=== PATIENT | female | born 1980 | race Caucasian/White ===

== ENCOUNTER 2020-04-21 01:45 | Day surgery (SDC) | payer OTHER, SELFPAY ==
[2020-04-20 15:48] VITALS: BMI 26.2
--- NOTE | 2020-04-20 15:48 | PM.IMHP ---
H&P: HPI History of Present Illness Date/Time: 04/20/20 15:48 Chief complaint: Missed AB Narrative: Joan Philippe is a 39 year old female who presents for suction D&C for missed AB. Pt was evaluated for bleeding in early . US showed a long within the uterus. Pt continued to have spotting. follow up US 2 weeks later showed an IUP with minimal interval growth and no heart tones. Review of Systems Cardiovascular: Cardiovascular: Denies chest pain, Denies leg edema, Denies palpitations, Denies dyspnea and Denies dyspnea on exertion Respiratory: Respiratory: Denies cough, Denies dyspnea and Denies dyspnea on exertion Gastrointestinal: Gastrointestinal: Denies abdominal pain, Denies constipation, Denies diarrhea, Denies nausea and Denies vomiting Genitourinary: Genitourinary: Denies hematuria, Denies urinary frequency, Denies dysuria, Denies pelvic pain, Denies urinary incontinence and Denies vaginal discharge Neurologic: Reports system reviewed and no additional complaints, except as documented Psychiatric: Psychiatric: Reports no additional psychiatric complaints Endocrine: Endocrine: Denies palpitations [facility] Family History Family History (Updated 04/14/14 @ 07:13 by DOCTOR UNKNOWN) Father Family history of malignant neoplasm of urinary bladder Social History Social History Smoking status: Never smoker Alcohol intake: current Meds Home Medications and Allergies Home Medications Medication Instructions Recorded Confirmed Type 21-iron fu-folic acid 1 tablet PO DAILY 04/20/20 04/20/20 History [ Complete] Allergies Allergy/AdvReac Type Severity Reaction Status Date / Time levofloxacin Allergy Unknown Rash Verified 04/20/20 15:49 Exam Const: General: no acute distress Eyes: EOM: EOMs intact bilaterally Neck: Neck: supple Thyroid: thyroid normal Chest: Breast/axilla inspection: normal inspection of the breasts Breast/axilla palpation: normal palpation of the breasts, normal palpation of the axillae and no axillary lymphadenopathy Resp: Effort & Inspection: normal respiratory effort Auscultation: clear to auscultation bilaterally Cardio: Rate: regular rate Rhythm: regular rhythm GI: Inspection: non-distended GI Palp: Yes Soft to palpation, No Tenderness to palpation present (GI) and No Guarding due to palpation present (GI) Auscultation: normal bowel sounds : General: No bladder normal to palpation External Female Exam: normal external appearance Speculum Exam - Vagina: normal vaginal discharge and No vaginal bleeding Speculum Exam - Cervix: nontender Bimanual exam- vagina & uterus: No bladder normal to palpation and No Cervical tenderness present OB/external & speculum: No vaginal bleeding Skin: General skin exam: normal color and no rashes or lesions noted Neuro: Cognition (Neuro): normal cognition Speech: normal speech Extrem: General: normal to inspection and no edema Psych: Mental Status: mental status grossly normal Affect: normal affect Assessment and Plan Assessment and plan (1) Missed : Code(s): O02.1 - Missed Status: Acute Assessment and Plan: 39 yo found to have a missed AB Rh+ initial US on 04/06/20 showed a long IUP at 6w2d with FHT follow up US on 04/20/20 showed minimal interval growth and no heart tones pt opted for surgical management via D&D alternative management methods and risk and benefits of each discussed. will plan for suction D&C under US guidance
--- NOTE | 2020-04-21 11:50 | WPDANESEPPF ---
Anes - Initial Pre Proc Eval Procedure: Operation Date: 04/21/20 13:00 Proposed Procedures p Suction Dilation And Curettage - Sotero Brian MD Date/Time: 04/21/20 11:50 Surgeon: Sotero Brian MD Pre Op Diagnosis: Missed AB Patient Data Age: 39 Gender: F Height: 4 ft 11 in Weight: 58.97 kg Allergies Allergy/AdvReac Type Severity Reaction Status Date / Time levofloxacin Allergy Unknown Rash Verified 04/20/20 15:49 Home Medications Medication Instructions Recorded Confirmed Type 21-iron fu-folic acid 1 tablet PO DAILY 04/20/20 04/20/20 History [ Complete] Patient hx anesthesia problems: other (shaking) Family hx anesthesia problems: none PMFSH Family History Family History Father Family history of malignant neoplasm of urinary bladder Social History Social History Smoking status: Never smoker Alcohol intake: current Spiritual care concerns: No Anes - Eval Final PreProcedure Day of Procedure 04/21/20 11:50 Patient weight: normal Heart: regular rate and rhythm Lungs: clear to auscultation Airway: Mallampati scale class 1 Neurological: alert and oriented ASA classification: II Emergent: no Anesthetic plan: proceed Anesthesia type and monitoring: general GIVS and standard monitoring Informed Consent: The patient's anesthetic plan and its attendant risks and benefits were discussed with the patient/family/POA. Questions were solicited and answers provided to the satisfaction of the patient/family/POA.
[2020-04-21 12:00] VITALS: BP 109/66; PULSE 65; RESP 18; TEMP 36.8; O2SAT 100
[2020-04-21] MEDS: LACTATED RINGERS 1,000 ML 30 ML IV CONT (12:51)
--- NOTE | 2020-04-21 12:51 | WPDHPUPDATE1 ---
History and Physical Update Update Date/Time: 04/21/20 12:51 History and Physical has been reviewed, including an updated exam of the patient. There are NO changes in the patient's condition. Risks, benefits, and alternatives have been discussed and questions answered. Patient agrees to proceed with procedure.
[2020-04-21] MEDS: DOXYCYCLINE HYCLATE 100 MG TABLET PO (12:53)
[2020-04-21 12:57] LABS: Hematocrit 38.9 % (37.0-47.0); Hemoglobin 13.3 g/dL (12.0-15.0)
[2020-04-21] MEDS: KETOROLAC 30 MG/ML VIAL (*BKC) IM (13:14)
[2020-04-21 13:23] VITALS: BP 120/83; PULSE 91; RESP 16; TEMP 37; O2SAT 98
[2020-04-21 13:40] VITALS: BP 114/67; PULSE 73; RESP 20; O2SAT 97
--- NOTE | 2020-04-21 13:44 | SUR.PHASEII ---
CALLED BACK TO ROOM.
--- NOTE | 2020-04-21 13:49 | PM.PROC ---
Procedure Note - Detailed Date of procedure: 04/21/20 Pre-op diagnosis: Missed AB Post-op diagnosis: same Procedure performed: Suction dilation and curettage Description of procedure: Antibiotics: Doxycycline Findings: uterus equal to dates, cervix not dilated, intrauterine MAB Complications: none Specimens: endometrial contents- products of conception EBL: 100 mL Indications: Patients was found to have an intrauterine MAB on pelvic US. She elected for surgical management via Suction D&C. Procedure: The patient was taken to the operating room after a missed had been noted on on transvaginal ultrasound. The risks, benefits and alternatives of the procedure were reviewed with the patient and informed consent was obtained. The patient was taken to the OR and anesthesia was noted to be adequate. The patient was placed in the dorsolithotomy position. Pelvic exam was performed with findings noted above. The patient was prepped and draped in the usual sterile fashion. Main retractors were placed anteriorly and posteriorly in the vagina and the cervix was grasped with an Tenaculum clamp. Paracervical block was performed wiht 1% lidocaine. The cervix was dilated further to allow for passage of a 8mm suction curette. The 8mm suction curette was gently advanced to the fundus, suction was activated, and the tip was rotated while being withdrawn to clear the uterus of products. This suction process was repeated 4 additional times due to the quantity of material in the uterus. The sharp curette was introduced and advanced to the fundus to remove any remaining products. The suction curette was reintroduced one final time to ensure all products had been removed. The entire D&C was performed under direct US visualization. Good endometrial stripe was visualized via US. The Tenaculum clamp was removed. Good hemostasis was noted. Instrument, sponge, and sharp counts were correct. Patient tolerated the procedure well and was taken to the recovery room in stable condition. Anesthesia: GLMA Surgeon: Sotero Brian MD Estimated blood loss (mL): 100 Drains: No Packing: No Pathology: yes (uterine contents) Complications: No immediate complications Condition: stable Disposition: PACU
[2020-04-21 14:10] VITALS: BP 111/71; PULSE 64; RESP 20; O2SAT 97
[2020-04-21 14:40] VITALS: BP 113/55; PULSE 67; RESP 20
[2020-04-21] MEDS: DOXYCYCLINE HYCLATE 100 MG TABLET 200 MG PO (14:44)
[2020-04-21 15:10] VITALS: BP 100/57; PULSE 74; RESP 20
--- NOTE | 2020-04-21 15:55 | SUR.PHASEII ---
7737 BLOOD BANK CALLED RE: BLOOD TYPE; TOLD SPECIMEN HAD JUST ARRIVED.
--- NOTE | 2020-04-21 15:55 | SUR.PHASEII ---
1515 BLOOD BANK CALLED WITH BLOOD TYPE RESULTS.
== END 2020-04-21 15:20 | disposition home or self-care (01) ==
PROVIDERS: PCP Family Medicine; Visit Provider Student in an Organized Health Care Education/Training Program
PROC: (CPT 59820; principal; 2020-04-21 13:00)
DX: O02.1 Missed abortion (principal)
CPT/HCPCS: 59820; 36415; 85014; 85018; 85461; 88264; 88305; A9270; J0131; J1100; J1885; J2250; J2405; J2704; J3010; J7120

== ENCOUNTER 2025-06-09 01:56 | Day surgery (SDC) | payer BC, SELFPAY ==
--- NOTE | 2025-06-07 07:22 | PM.IMHP ---
H&P: HPI History of Present Illness Date/Time: 06/07/25 07:22 Chief Complaint: Desires permanent sterilization excessive heavy bleeding Narrative: Is a 44-year-old multiparous patient admitted for laparoscopic bilateral salpingectomy hysteroscopy/dilatation curettage and Dora ablation. She desires permanent irreversible sterilization. She has declined other methods and understands this to be permanent and irreversible she also has excessive heavy bleeding and will undergo an ablation risks and benefits reviewed including not exclusive of , aspiration pneumonia, bleeding, transfusion, perforation injury to bowel, bladder, ureters, or other internal organs with need for open laparotomy. She received the ACOG handout entitled hysteroscopy as well as dilatation curettage and laparoscopy. She had all questions answered and asked to proceed Review of Systems Cardiovascular: Cardiovascular: Denies chest pain, Denies leg edema, Denies palpitations, Denies dyspnea and Denies dyspnea on exertion Respiratory: Respiratory: Denies cough, Denies dyspnea and Denies dyspnea on exertion Gastrointestinal: Gastrointestinal: Denies abdominal pain, Denies constipation, Denies diarrhea, Denies nausea and Denies vomiting Genitourinary: Genitourinary: Denies hematuria, Denies urinary frequency, Denies dysuria, Denies pelvic pain, Denies urinary incontinence and Denies vaginal discharge Neurologic: Reports system reviewed and no additional complaints, except as documented Psychiatric: Psychiatric: Reports no additional psychiatric complaints Endocrine: Endocrine: Denies palpitations [facility] Family History Family History Father Family history of malignant neoplasm of urinary bladder Social History Social History Smoking status: Never smoker Alcohol intake: current Spiritual care concerns: No Meds Home Medications and Allergies Home Medications ?Medication ?Instructions ?Recorded ?Confirmed ?Type vits,calcium 21-iron fum 1 tablet PO DAILY 04/20/20 04/20/20 History 14 mg iron-folic acid 400 mcg tablet ( Complete) acetaminophen 500 mg tablet 500 mg PO Q6H PRN pain #30 tabs 04/21/20 Rx (Tylenol Extra Strength) ibuprofen 600 mg tablet 600 mg PO Q6H PRN pain #30 tabs 04/21/20 Rx Allergies Allergy/AdvReac Type Severity Reaction Status Date / Time levofloxacin Allergy Unknown Rash Verified 04/21/20 12:55 Exam Const: General: cooperative, healthy appearing and comfortable Nutritional Appearance: average body habitus Orientation/consciousness: oriented to person, oriented to place and oriented to time Resp: Effort & Inspection: normal respiratory effort Cardio: Rate: regular rate Rhythm: regular rhythm Heart sounds: S1 normal heart sound present and S2 normal heart sound present GI: Inspection: normal to inspection : Speculum Exam - Vagina: normal appearance of the vagina Speculum Exam - Cervix: normal appearance of the cervix Bimanual exam- vagina & uterus: normal bimanual exam Assessment and Plan Assessment and plan (1) Sterilization: Code(s): Z30.2 - Encounter for sterilization Status: Acute (2) Menorrhagia: Code(s): N92.0 - Excessive and frequent menstruation with regular cycle Status: Acute Plan Proceed with laparoscopy bilateral salpingectomy as well as hysteroscopy/dilatation curettage/Dora ablation
--- NOTE | 2025-06-07 10:39 | SUR.PREOP ---
[facility] has started construction of its new state of the art ER which will open Spring 2026. With this, we anticipate parking may be a challenge for some our surgical patients and families. Parking spaces are limited but are available for all Surgical, obstetrics, and ER patients sharing this lot. If you arrive and find you are having a hard time finding a parking space, please note that we understand the challenges, please drive around the hospital and park near Hospital Entrance 1. When you enter this entrance, you can ask a volunteer to direct or take you back to the surgical waiting area to check in. We appreciate everyone?s understanding of these expected challenges while we build for your future. Report to the Outpatient Waiting Room, entrance under the green pavilion located off [address], at time _730am__ on date _06/09/25_. Planned Procedure Time: _930am__.? Time changes happen often and if your time is changed the preop area will call you the afternoon before. - You and your visitor will be asked to self-screen and do not enter if you have any COVID symptoms. Please call surgeon if you need to reschedule. - A mask is optional within the hospital at this time. Patients may have clear liquids (water, carbonated beverages, clear teas, apple juice) until 3 hours prior to surgery with a maximum of 20 ounces. - No food from midnight until time of surgery and no smoking, or chewing tobacco (or any form of nicotine). No chewing gum, candy or mints. Take only the following medications with a SIP of water on the morning of surgery: ___none____ DO NOT STOP ANY OF YOUR OTHER PRESCRIPTION MEDICATIONS PRIOR TO SURGERY EXCEPT THE FOLLOWING Hold all vitamins and supplements for 3 days per anesthesiologist. Medications to discontinue per physician ___None Date to take last dose_immediately today Please no make-up, nail maltese, hairspray, perfume, deodorant, or body powder the day of surgery.? No jewelry (including any body piercings) or valuables the day of surgery, leave them at home.? Please take a shower or bath the night before, or the morning of, surgery with an antibacterial soap.? Wear comfortable, loose fitting clothing.? - Jewelry must be removed prior to entering the operating room.? Rings and piercings that are not removed may be cut off. - The hospital will not accept responsibility for valuables.? - Please leave all valuables, including medications, at home the day of surgery. If you are going home after surgery, a licensed national flatbed truck driver must drive you home.? - NO public transportation without another adult if you receive anesthesia. - We recommend that an adult stay with you for 24 hours following discharge. - We also recommend that you do not drive, make important decision, drink alcoholic beverages, or take any drugs that were not prescribed by your health care provider for at least 24 hours after your discharge time. Follow any additional instructions given to you from your surgeon. Telephone instructions given to _Joan__and asked if any additional questions and then verbalized understanding. Patient advised to call surgeon office or pre surgery nurse liaison [phone] if any additional questions.
[2025-06-07 10:44] VITALS: BMI 26.2
[2025-06-09] VITALS (14 sets, daily range): BP systolic 93–133; BP diastolic 50–77; PULSE 48–118; RESP 10–20; TEMP 36.2–36.8; O2SAT 92–100
--- OUTSIDE RECORDS SUMMARY | 2025-06-09 01:59 | XMS_ITS | Clinical Summary ---
Author Organization [facility] Address [address] [place] [id number] Care Team Providers Care Picking Belt Operator Name Role Phone Catrachita Combs Primary Care Provider [phone] Allergies Active Allergy Reactions Criticality Noted Date Comments Levofloxacin Unknown 02/11/2020 Medications Multiple Vitamin (MULTIVITAMIN ADULT OR) Take 1 tablet by mouth daily. Active Active Problems Problem Noted Date Diagnosed Date Palpitations 09/18/2024 Encounters Date Type Department Care Team Description 03/28/2025 12:00 PM CDT Office Visit [address] [address] Martha Barrientos, ANP- Follow Up 03/28/2025 Travel from Last 3 Months Family History Medical History Relation Comments Open Heart Father Valve Disease Father Multiple myeloma Mother Relation Status Comments Brother 1 (Age 26) Brother 2 Alive Father Alive Mother (Age 65) Sister Alive Social History Tobacco Use Types Packs/Day Years Used Date Smoking Tobacco: Never Smokeless Tobacco: Never Alcohol Use Standard Drinks/Week Comments Yes 6.7 (1 standard drink = 0.6 oz p ure alcohol) Comments No Sex and Gender Information Value Date Recorded Sex Assigned at Female 09/14/2024 1:05 PM LAW RESEARCHER Legal Sex Female 1:25 PM CDT Gender Identity Not on file Sexual Orientation Not on file Last Filed Vital Signs Vital Sign Reading Time Taken Comments Blood Pressure 126/80 03/28/2025 12:06 PM CDT Pulse 71 03/28/2025 12:06 PM CDT Temperature 37 C (98.6 F) 01/20/2024 8:59 PM CDT Respiratory Rate 16 01/21/2024 12:02 AM CDT Oxygen Saturation 96% 03/28/2025 12:06 PM CDT Inhaled Oxygen Concentration - - Weight 61.2 kg (135 lb) 03/28/2025 12:06 PM CDT Height 149.9 cm (4' 11) 03/28/2025 12:06 PM CDT Body Mass Index 27.27 03/28/2025 12:06 PM CDT Plan of Treatment Health Maintenance Due Date Last Done Comments Cervical Cancer Screening Pa p Smear (Age 30 to 64) Every 3 Years 1981 Annual Physical 1984 Hepatitis C 1999 Hepatitis B Vaccines (1 of 3 - 19+ 3-dose series) 2000 Pneumococcal Vaccine: Pediatrics (0 to 5 Years) and At-Risk Patients (6 to 49 Years) (1 of 2 - PCV) 2000 HPV Vaccines (1 - 3-dose SCD M series) 2008 Cervical Cancer Screening Pa p with HPV Testing (Age 30 to 64) Every 5 Years 2011 Cervical Cancer Screening wi HPV 2011 COVID-19 Vaccine (2024-2 6 season) 2025 08/27/2021, 11/05/2020, 10/15/2020 Influenza Adult (#1) 2025 06/22/2021, 05/18/2020 Mammogram Screening 06/19/2025 06/19/2023, 06/13/2023, 03/21/2022 DTaP, Tdap and Td Vaccines ( 3 - Td or Tdap) 03/06/2033 03/06/2023, 10/17/2020 Hepatitis A Vaccines Aged Out No long er eligible based on patient's age to complete this topic Meningococcal B Vaccine Aged Out No l onger eligible based on patient's age to complete this topic Meningococcal Vaccine Aged Out No emili nieves eligible based on patient's age to complete this topic RSV Immunizations Under 20 Months Aged Out No longer eligible b ased on patient's age to complete this topic Insurance [facility] Care Teams Picking Belt Operator Relationship Specialty Start Date End Date Catrachita Combs PA [address] [place] [address] PCP - General PHYSICIAN DIETITIAN RESEARCH 05/27/24
--- OUTSIDE RECORDS SUMMARY | 2025-06-09 01:59 | XMS_ITS | Encounter Summary ---
Author Organization [facility] Facility Care Team Providers Care Rn Training Name Role Phone Marcio Ware Primary Care Provider [phone] Ruthann Melissa MD Primary Care Provi holden Marcio Ware Unavailable [phone] Catrachita Combs Primary Care Provider + Encounter Details Date Type Department Care Team (Latest Contact Info) Description 09/17/2018 Orders Only [facility] CLINCONV Provider, MD Kaya [address] [place] [address] Social History Tobacco Use Types Packs/Day Years Used Date Smoking Tobacco: Never Assessed Comments Unknown Sex and Gender Information Value Date Recorded Sex Assigned at Not on file Legal Sex Female 11:03 AM HIDE WASHER Gender Identity Female 07/02/2021 10:51 AM HIDE WASHER Sexual Orientation Straight 07/02/2021 10 :51 AM HIDE WASHER documented as of this encounter Plan of Treatment Not on file documented as of this encounter Procedures Procedure Name Priority Date/Time Associated Diagnosis Comments CARDIOLOGY REPORT 09/24/2018 12: 00 AM HIDE WASHER CARDIOLOGY REPORT 09/24/2018 12: 00 AM HIDE WASHER documented in this encounter Results * CARDIOLOGY REPORT (09/24/2018 12:00 AM HIDE WASHER) Anatomical Region Laterality Modality Other Narrative 09/24/2018 12:00 AM HIDE WASHER Ordered by an unspecified provider. us Historical Provider [facility] CARDIAC SERVICES PROCE DURES Final Result * CARDIOLOGY REPORT (09/24/2018 12:00 AM HIDE WASHER) Anatomical Region Laterality Modality Other Narrative 09/24/2018 12:00 AM HIDE WASHER Ordered by an unspecified provider. us Historical Provider CV CARDIAC SERVICES PROCE DURES Final Result documented in this encounter Visit Diagnoses Not on filedocumented in this encounter Care Teams Rn Training Relationship Specialty Start Date End Date Marcio Ware PA PCP - General 01/06/18 10/18/18 Ruthann Melissa MD [address] [place], [place] [id number] PCP - General 10/19/18 04/15/24 Catrachita Combs PA [address] [id number] PCP - General Family Medicine 04/16/24 Marcio Ware PA 10/19/18 12/15/19 documented as of this encounter
--- OUTSIDE RECORDS SUMMARY | 2025-06-09 01:59 | XMS_ITS | Encounter Summary ---
Author Organization [facility] Facility Care Team Providers Care Cloth Coverer Name Role Phone Marcio Ware Primary Care Provider [phone] Ruthann Melissa MD Primary Care Provi holden Marcio Ware Unavailable [phone] Catrachita Combs Primary Care Provider + Encounter Details Date Type Department Care Team (Latest Contact Info) Description 03/26/2018 Orders Only [facility] CLINCONV Provider, MD Kaya [address] [place] [address] Social History Tobacco Use Types Packs/Day Years Used Date Smoking Tobacco: Never Assessed Comments Unknown Sex and Gender Information Value Date Recorded Sex Assigned at Not on file Legal Sex Female 11:03 AM TUBE PUSHER Gender Identity Female 07/02/2021 10:51 AM TUBE PUSHER Sexual Orientation Straight 07/02/2021 10 :51 AM TUBE PUSHER documented as of this encounter Plan of Treatment Not on file documented as of this encounter Procedures Procedure Name Priority Date/Time Associated Diagnosis Comments SCAN - PATHOLOGY 03/26/2018 12:0 0 AM CDT documented in this encounter Results * SCAN - PATHOLOGY (03/26/2018 12:00 AM CDT) Narrative 03/26/2018 12:00 AM CDT Ordered by an unspecified provider. Historical Provider Final Res ult documented in this encounter Visit Diagnoses Not on filedocumented in this encounter Care Teams Cloth Coverer Relationship Specialty Start Date End Date Marcio Ware PA PCP - General 01/06/18 10/18/18 Ruthann Melissa MD [address] [facility] [place], [place] [phone] PCP - General 10/19/18 04/15/24 Catrachita Combs PA [address] [place], [place] [id number] PCP - General Family Medicine 04/16/24 Marcio Ware PA 10/19/18 12/15/19 documented as of this encounter
--- OUTSIDE RECORDS SUMMARY | 2025-06-09 02:00 | XMS_ITS | Clinical Summary ---
Author Organization [address] Address [address] [place] [address] [place] [address] Care Team Providers Care Hydrotel Operator Name Role Phone Catrachita Combs Primary Care Provider + Allergies Active Allergy Reactions Criticality Noted Date Comments Levofloxacin Unknown 02/11/2020 Medications ascorbic acid (VITAMIN C) 100 mg tablet 10 tablets (1,000 mg total) daily Active lwrdgpyq-bgza-b in-folic acid 18-0.4 mg tablet Take by mouth Active escitalopram (LEXAPRO) 5 mg tabletIndicatio ns:Adjustment disorder with mixed anxiety and depressed mood Take 1 tablet (5 mg total) by mouth daily 90 tablet 3 04/16/2024 Active Active Problems Problem Noted Date Diagnosed Date Shortness of breath 04/16/2024 Assessment & Plan (04/16/2024 12:25 PM CDT): New problem. Patient is experiencing difficulty breathing with sitting. Denies any symptoms with exertion. She can exercise strenuously without problems. EKG completed in office shows sinus bradycardia. Machine interpretation reading anterior infarct age undetermined. Reviewed EKG from 2019 as well, similar appearance. No chest pain. Doubt this is cardiac in nature. However, with patient's concerns and family history we will get further workup to ensure no underlying cardiac pathology. Check cardiac enzymes Referral to Cardiology, might consider stress testing if appropriate We will get echo given her shortness of breath More likely, this is a positional issue. Encouraged proper posture and deep breathing exercises. Neck pain on left side 04/16/2024 Physical exam, annual 09/11/2020 Overview (03/06/2023): Work on healthy low carb diet Healthy activity for 30 minutes daily Wear sun screen, seat belts No texting/drinking and driving Health Maintenance: Last PAP: through [employer]IMAL CARETAKER SUPERVISOR-May 2021 Last mammogram: 03/2022-WNL, ordered Last Tdap: encouraged Last Flu: encouraged yearly Last COVID: encouraged yearly Assessment & Plan (04/16/2024 12:13 PM CDT): Doing well overall Working on weight loss with diet/exercise and has been successful Mood improved with lexapro Mammogram - annual screening due 2023 Pap - will request previous records, gets yearly Vaccinations reviewed Assessment & Plan (03/06/2023 9:58 AM CDT): Work on healthy low carb diet Healthy activity for 30 minutes daily Wear sun screen, seat belts No texting/drinking and driving Health Maintenance: Last PAP: through [employer]AKER SUPERVISOR-May 2021 Last mammogram: 03/2022-WNL, ordered Last Tdap: encouraged Last Flu: encouraged yearly Last COVID: encouraged yearly Assessment & Plan (01/07/2022 1:33 PM CDT): Work on healthy low carb diet Healthy activity for 30 minutes daily Wear sun screen, seat belts No texting/drinking and driving Health Maintenance: Last PAP: through [employer] CAR[employer]AKER SUPERVISOR-May 2021 Last mammogram: ordered Last Tdap: encouraged Last Flu: encouraged yearly Last COVID: up to date Assessment & Plan (09/11/2020 10:29 AM COMPUTER ENGINEER): Work on healthy low carb diet Healthy activity for 30 minutes daily Wear sun screen, seat belts No texting/drinking and driving Health Maintenance: Last PAP: through [employer]IM[employer] CAR[employer]AKER SUPERVISOR Last mammogram: @41 Last DEXA:@61 Last colonoscopy/cologuard: @46 Last Tdap: up to date Last pneumonia/Prevnar:@66 Last Shingrix: @50 Last Flu: encouraged yearly Adjustment disorder with mixed anxiety and depre ssed mood 09/11/2020 Assessment & Plan (04/16/2024 12:13 PM CDT): Stable, no changes. Continue current regimen with Lexapro 5mg daily (pt taking 1/2 pill currently) Assessment & Plan (03/06/2023 10:00 AM CDT): Doing well on current regimen Continue lexapro Continue healthy changes to boost mood- exercise, healthy diet, using support structures that are in place, and good sleep habits If mood worsens or changes, please contact the office Anything emergent, to the er Call for questions or concerns Assessment & Plan (01/07/2022 1:49 PM CDT): Patient reiterated no suicidal thoughts at this time; contact 911 and go to the ER if becomes suicidal lexapro 5 mg daily take medication as directed discussed side effects of medication with patient encouraged healthy diet and exercise Will refer to a counselor use support structures you have in place consider meditation-look at Calm ant try to work on healthy sleep habits If mood worsens or changes, please contact the office Anything emergent, to the er Assessment & Plan (09/11/2020 10:35 AM COMPUTER ENGINEER): Patient reiterated no suicidal thoughts at this time; contact 911 and go to the ER if becomes suicidal lexapro 5 mg daily take medication as directed discussed side effects of medication with patient encouraged healthy diet and exercise encouraged patient to see a counselor use support structures you have in place consider meditation-look at Calm ant try to work on healthy sleep habits If mood worsens or changes, please contact the office Anything emergent, to the er Miscarriage 09/11/2020 Assessment & Plan (09/11/2020 11:09 AM COMPUTER ENGINEER): Continue to follow with her [employer] SUPERVISOR Let me know if she would want to see a new [employer]IMAL CARETAKER SUPERVISOR Update me with any changes Pure hypercholesterolemia 09/11/2020 Assessment & Plan (04/16/2024 12:14 PM CDT): Stable, no changes. Continue current regimen with diet and exercise; lipid panel has improved, at goal Assessment & Plan (03/06/2023 10:01 AM CDT): Chronic, stable Continue healthy changes Assessment & Plan (09/11/2020 11:25 AM COMPUTER ENGINEER): Mild elevation in LDL Continue healthy changes for her diet Call for questions or concerns Overweight (BMI 25.0-29.9) 09/11/2020 Assessment & Plan (03/06/2023 10:00 AM CDT): BMI Follow-up includes: nutrition counseling. Assessment & Plan (09/11/2020 11:26 AM COMPUTER ENGINEER): She is doing great with her diet and exercise- continue healthy changes Leukopenia 11/11/2017 Encounters Date Type Department Care Team Description 05/17/2025 7:50 AM CDT Lab [facility] [address] [place] [id number] Adult wellness visit; Missed menses 05/17/2025 Results Follow-Up [facility] [address] [address] Catrachita Combs PA Thyroid Function [place], Lipid panel, Comprehensive metabolic panel, Additional followed-up results: 7 05/16/2025 Orders Only [facility] [address] [address] Catrachita Combs PA Adult wellness visit (Primary Dx); Missed menses from Last 3 Months Immunizations Immunization Administration Dates Next Due Influenza, Quadrivalent, Spl it, Preservative Free, Intramuscular 06/22/2021 Influenza, Unspecified 06/04/2023(Deferr ed: Patient decision),05/18/2022(Deferred: Patient Refused),05/18/2021(Deferred: Patient Refused),05/18/2020 Tdap 03/06/2023 Surgical History Surgery Date Site/Laterality Comments AUGMENTATION MAMMAPLASTY Bilateral 2015 Medical History Medical History Date Comments Miscarriage 09/11/2020 Pure hypercholesterolemia 09/11/2020 Family History Medical History Relation Name Comments Hypertension Brother Heart disease Father Hypertension Father Multiple myeloma Mother Breast cancer Mother's Sister Relation Name Status Comments Brother Alive Father Alive Maternal Grandfather Maternal Grandmother Mother Alive Mother's Sister Paternal Grandfather Paternal Grandmother Sister Alive Social History Tobacco Use Types Packs/Day Years Used Date Smoking Tobacco: Never Tobacco Cessation:Counseling Given: Not Answered Alcohol Use Standard Drinks/Week Comments Yes 0 (1 standard drink = 0.6 oz pur e alcohol) socially AUDIT-C Answer Date Recorded Q1: How often do you have a drink containing alc ohol? 2-4 times a month 03/06/2023 Q2: How many drinks containi ng alcohol do you have on a typical day when you are drinking? 1 or 2 03/06/2023 Q3: How often do you have si x or more drinks on one occasion? Never 03/06/2023 PHQ-2 Answer Date Recorded PHQ-2 Total Score (If total score is 3 or more points, staff should administer the PHQ-9) 0 04/16/2024 Personal Safety Answer Date Recorded Getting School Help Needed Not on file 10/31 Comments No Sex and Gender Information Value Date Recorded Sex Assigned at Not on file Legal Sex Female 11:03 AM COMPUTER ENGINEER Gender Identity Female 07/02/2021 10:51 AM COMPUTER ENGINEER Sexual Orientation Straight 07/02/2021 10 :51 AM COMPUTER ENGINEER Obstetrics History Para Term AB IAB SAB Ectopic Multiple Livin g Live Births 5 1 1 Date Outcome GA Total Labor Labor/2nd/3rd Weight Sex Type Anes PTL Angelica A1 A5 Name Clin Term Last Filed Vital Signs Vital Sign Reading Time Taken Comments Blood Pressure 112/78 04/16/2024 10:20 AM CDT Pulse 68 04/16/2024 10:20 AM CDT Temperature 36.4 C (97.5 F) 04/16/2024 10:20 AM CDT Respiratory Rate 14 04/16/2024 10:20 AM CDT Oxygen Saturation 98% 04/16/2024 10:20 AM CDT Inhaled Oxygen Concentration - - Weight 60.6 kg (133 lb 9.6 oz) 04/16/2024 10:20 AM CDT Height 151.1 cm (4' 11.5) 04/16/2024 10:20 AM C DT Body Mass Index 26.53 04/16/2024 10:20 AM CDT Plan of Treatment Health Maintenance Due Date Last Done Comments Hepatitis C Screening 1981 Hepatitis B Screening 1999 HPV Vaccines (1 - 3-dose SCDM series) 2008 Regular Well Visit/Exam 18-64 03/06/2024 03/06/2023, 03/06/2023, 01/07/2022, Additional history exists Breast Cancer Screening-Mammogram 06/13/2024 06/13/2023, 03/21/2022 Cervical Cancer Screening 07/29/2024 07/29/2023, Depression Screening 04/16/2025 04/16/2024, 03/06/2023, 03/06/2023, Additional history exists Covid-19 Vaccine ( season) 2025 08/27/2021, 11/05/2020, 10/15/2020 Influenza Vaccine (#1) 2025 06/22/2021, 2019 DTaP/Tdap/Td Vaccine (2 - Td or Tdap) 03/06/2033 03/06/2023 Pneumococcal vaccine <65 Aged Out No longer eligible based on patient's age to complete this topic Varicella Vaccines Discontinued Procedures Procedure Name Priority Date/Time Associated Diagnosis Comments EGFR Routine 05/17/2025 7:55 AM CDT Adult wellness visit DIFFERENTIAL AUTO Routine 05/17/2025 7:5 5 AM CDT Adult wellness visit FOLLICLE STIMULATING HORMONE Routine 05/17/2025 7:55 AM CDT Missed menses LUTEINIZING HORMONE (LH) Routine 05/17/2025 7:55 AM CDT Missed menses ESTRADIOL Routine 05/17/2025 7:55 AM CDT Missed menses HCG, BLOOD, QUANTITATIVE Routine 05/17/2025 7:55 AM CDT Missed menses CBC WITH AUTO DIFFERENTIAL Routine 05/17/2025 7:55 AM CDT Adult wellness visit COMPREHENSIVE METABOLIC PANEL Routine 05/17/2025 7:55 AM CDT Adult wellness visit LIPID PANEL Routine 05/17/2025 7:55 AM CDT Adult wellness visit THYROID FUNCTION CASCADE Routine 05/17/2025 7:55 AM CDT Adult wellness visit HM PAP SMEAR WITH HPV Routine 07/29/2023 1:58 PM COMPUTER ENGINEER SCREENING MAMMOGRAM BILATERAL W MARGARITA Schedule Routine, Read Routine (OP Routine) 06/13/2023 1:15 PM CDT Encounter for screening mammogram for malignant neoplasm of breast from Last 3 Months or Most Recently Relevant to Health Maintenance Results * eGFR (05/17/2025 7:55 AM CDT) eGFR 84 >=60 mL/min/1. 73 m2 Comment: Interpretive Data Reference Interval Normal >/= 90 mL/min/1.73m2 Mildly decreased* 60 - 89 mL/min/1.73m2 Mildly to moderately decreased 45 - 59 mL/min/1.73m2 Moderately to severely decreased 30 - 44 mL/min/1.73m2 Severely decreased 15 - 29 mL/min/1.73m2 Kidney Failure < 15 mL/min/1.73m2 *Relative to young adult level Estimated glomerular filtration rate is determined by the 2020 CKD-EPI equation recommended by the National Kidney Foundation (A Unifying Approach to GFR Estimation: Recommendations of the NKF-ASK Task Force on Reassessing the Inclusion of Race in Diagnosing Kidney Disease, JASN 2020). The CKD-EPI equation should not be used for patients with unstable renal function and has not been validated in children and those over 70. Current interpretive data was last reviewed 2021. Testing performed by: [facility], [address] [place] [address], [place]., [address] Blood 05/17/2025 7:55 AM CDT 05/17/2025 8:09 AM CDT us Catrachita PRATHER LAB BLOOD ORDERABLES Fin al Result [facility] [address] [facility] Department [place] [address] * Differential, auto (05/17/2025 7:55 AM CDT) Neutrophil abs 2.85 1.50 - 6.50 K/cumm Comment:Testing performed by : [address] [address] Imm gran abs 0.02 0.00 - 0.10 K/cumm JENNY Comment:Testing performed by : [address] [address] Lymphocyte abs 1.22 0.80 - 3.30 K/cumm JENNY Comment:Testing performed by : [address] [address] Monocyte abs 0.36 0.20 - 0.80 K/cumm [facility] Comment:Testing performed by : [address] [address] Eosinophil abs 0.06 0.00 - 0.50 K/cumm [facility] Comment:Testing performed by : [address] [address] Basophil abs 0.03 0.00 - 0.10 K/cumm [facility] Comment:Testing performed by : [address] [address] Neutrophil pct 62.8 % [facility] Comment: Interpretive Data Percent cell count reference ranges are not reported, since discordance with absolute values may lead to misinterpretation of CBC data. Current Interpretive Data was last revised on 2017. Testing performed by: [address] [address] Imm gran pct 0.4 % JENNY Comment: Interpretive Data Percent cell count reference ranges are not reported, since discordance with absolute values may lead to misinterpretation of CBC data. Current Interpretive Data was last revised on 2017. Testing performed by: [address] [address] Lymphocyte pct 26.9 % [facility] Comment: Interpretive Data Percent cell count reference ranges are not reported, since discordance with absolute values may lead to misinterpretation of CBC data. Current Interpretive Data was last revised on 2017. Testing performed by: [address] [address] Monocyte pct 7.9 % [facility] Comment: Interpretive Data Percent cell count reference ranges are not reported, since discordance with absolute values may lead to misinterpretation of CBC data. Current Interpretive Data was last revised on 2017. Testing performed by: [address] [address] Eosinophil pct 1.3 % [facility] Comment: Interpretive Data Percent cell count reference ranges are not reported, since discordance with absolute values may lead to misinterpretation of CBC data. Current Interpretive Data was last revised on 2017. Testing performed by: [address] [address] Basophil pct 0.7 % [facility] Comment: Interpretive Data Percent cell count reference ranges are not reported, since discordance with absolute values may lead to misinterpretation of CBC data. Current Interpretive Data was last revised on 2017. Testing performed by: [address] [address] Blood 05/17/2025 7:55 AM CDT 05/17/2025 8:09 AM CDT us Catrachita PRATHER LAB BLOOD ORDERABLES Fin al Result [facility] [address] [facility] Department [place] [address] * Thyroid Function [place] (05/17/2025 7:55 AM CDT) TSH 2.34 0.30 - 4.20 mcIUnit/mL Comment:Testing performed by : [address] [address] Blood 05/17/2025 7:55 AM CDT 05/17/2025 8:09 AM CDT us Catrachita PRATHER LAB BLOOD ORDERABLES Fin al Result JENNY [address] [facility] Department [place] [address] * CBC with auto differential (05/17/2025 7:55 AM CDT) WBC 4.54 3.80 - 9.90 K/cumm Comment:Testing performed by : [address] [address] Hgb 14.3 11.9 - 15.5 g/dL JENNY Comment:Testing performed by : [address] [address] Hct 42.3 35.6 - 45.5 % JENNY Comment:Testing performed by : [address] [address] Plt 277 150 - 400 K/cumm JENNY Comment:Testing performed by : [address] [address] MPV 9.7 9.1 - 12.3 fL JENNY Comment:Testing performed by : [address] [address] RBC 4.42 3.90 - 5.20 M/cumm JENNY Comment:Testing performed by : [address] [address] MCV 95.7 81.3 - 96.4 fL JENNY Comment:Testing performed by : [address] [address] MCH 32.4 27.1 - 33.3 pg JENNY Comment:Testing performed by : [address] [address] MCHC 33.8 32.3 - 35.7 g/dL JENNY Comment:Testing performed by : [address] [address] RDW CV 11.5 11.1 - 14.9 % JENNY Comment:Testing performed by : [address] [place]., [address] RDW SD 40.2 35.7 - 48.1 fL JENNY GREEN Comment:Testing performed by : [facility], [address] [place] [address]., [address] NRBC abs 0.00 0.00 - 0.01 K/cumm JENNY GREEN Comment:Testing performed by : [facility], [address] [place] [address]., [address] Blood 05/17/2025 7:55 AM CDT 05/17/2025 8:09 AM CDT Catrachita PRATHER LAB BLOOD ORDERABLES Fin al Result Performing Organization Address [place] Co de Phone Number RONNIE[address] [place] [address] * Estradiol (05/17/2025 7:55 AM CDT) Pathologist [facility] Estradiol 85.0 pg/mL Comment: Interpretive Data Males: 11 43 pg/mL Females: Premenopausal: 31 533 pg/mL Postmenopausal: < 50 pg/mL Patients treated with Fluvestrant (Faslodex) should be tested using an alternate assay such as LC-MS due to potential for cross-reactivity. Estradiol varies widely throughout the menstrual cycle. Current interpretive data was last revised 2024. Blood 05/17/2025 7:55 AM CDT 05/17/2025 10:26 AM CDT Narrative JENNY - 05/17/2025 11:25 AM CDT Is patient taking Fulvestrant?->No Catrachita PRATHER LAB BLOOD ORDERABLES Fin al Result Performing Organization Address [facility] Co de Phone Number [place] [phone] [facility] [place] [address] * hCG, blood, quantitative (05/17/2025 7:55 AM CDT) Pathologist [facility] hCG, quant <5.0 0.0 - 5.0 IUnits/L Comment: Interpretive Data Male: < 5 IU/L Non- premenopausal Female: <5 IU/L The Polly hCG Beta Quant assay procedure was used. Results from different manufacturers or methods may not be comparable. Serial testing should be performed using the same method. Interpretive Data was last revised on 2023 Testing performed by: [facility], [address] [place] [address]., [address] Blood 05/17/2025 7:55 AM CDT 05/17/2025 8:09 AM CDT Catarchita PRATHER LAB BLOOD ORDERABLES Fin al Result Performing Organization Address [facility] Co de Phone Number JENNY [address] [place] [address] * LH (05/17/2025 7:55 AM CDT) LH 7.0 mIUnits/mL Comment: Interpretive Data Males: Adults: 1.7 - 8.6 IUnits/L Females: Follicular: 2.4 - 12.6 IUnits/L Ovulation: 14.0 - 95.6 IUnits/L Luteal: 1.0 - 11.4 IUnits/L Postmenopausal: 7.7 - 58.5 IUnits/L Current interpretive data was last revised on 2019. Blood 05/17/2025 7:55 AM CDT 05/17/2025 10:26 AM CDT Catrachita PRATHER LAB BLOOD ORDERABLES Fin al Result Performing Organization Address [facility] Co de Phone Number RONNIE[address] [place] [address] * Follicle stimulating hormone (05/17/2025 7:55 AM CDT) FSH 3.8 1.5 - 12.4 IUnits/L Blood 05/17/2025 7:55 AM CDT 05/17/2025 10:26 AM CDT us Catrachita PRATHER LAB BLOOD ORDERABLES Fin al Result JENNY GREEN [address] [facility] Department [place] [address] * Lipid panel (05/17/2025 7:55 AM CDT) Cholesterol 170 30 - 199 mg/dL Comment: Interpretive Data Ages < or = 19 years Acceptable: <170 mg/dL Borderline high: 170-199 mg/dL High: >or= 200 mg/dL Ages > or = 20 years Desirable: <200 mg/dL Borderline high: 200-239 mg/dL High: >or= 240 mg/dL Literature References: 1. Expert Panel on Integrated Guidelines for Cardiovascular Health and Risk Reduction in Children and Adolescents. Pediatrics 2011;128:S213 2. NCEP Expert Panel. Circulation 2004;110:227 Current Interpretive Data was last revised on 2018. Testing performed by: [address] [address] Triglycerides 53 <=149 mg/dL JENNY Comment: Interpretive Data Ages < or = 9 years Acceptable: <75 mg/dL Borderline high: 75-99 mg/dL High: >or= 100 mg/dL Ages 10 to 20 years Acceptable: <90 mg/dL Borderline high: 90-129 mg/dL High: >or= 130 mg/dL Ages > or = 20 years Desirable: <150 mg/dL Borderline high: 150-199 mg/dL High: 200-499 mg/dL Very high: >or= 499 mg/dL Literature References: 1. Expert Panel on Integrated Guidelines for Cardiovascular Health and Risk Reduction in Children and Adolescents. Pediatrics 2011;128:S213 2. NCEP Expert Panel. Circulation 2004;110:227 Current Interpretive Data was last revised on 2018. Testing performed by: [address] [address] HDL 70 >=40 mg/dL JENNY Comment: Interpretive Data Ages < or = 19 years Acceptable: >45 mg/dL Borderline low: 40-45 mg/dL Low: <40 mg/dL Ages > or = 20 years Desirable: >or= 60 mg/dL Low: <40 mg/dL Literature References: 1. Expert Panel on Integrated Guidelines for Cardiovascular Health and Risk Reduction in Children and Adolescents. Pediatrics 2011;128:S213 2. NCEP Expert Panel. Circulation 2004;110:227 Current Interpretive Data was last revised on 2018. Testing performed by: [address] [address] LDL, calculated 89 <=129 mg/dL JENNY Comment: Interpretive Data Ages < or = 19 years Acceptable: <110 mg/dL Borderline high: 110-129 mg/dL High: >or= 130 mg/dL Ages > or = 20 years Optimal: <100 mg/dL Near optimal: 100-129 mg/dL Borderline high: 130-159 mg/dL High: >160 mg/dL Calculated using the Ochoa LDL-C estimating equation. This equation was implemented on 2024. Prior to this date LDL-C was estimated using the Friedewald equation. Literature References: 1. Expert Panel on Integrated Guidelines for Cardiovascular Health and Risk Reduction in Children and Adolescents. Pediatrics 2011;128:S213 2. NCEP Expert Panel. Circulation 2004;110:227 3. Ochoa Pratt et al. MYRON Cardiol. 2020 December 16;5(5):540-548. doi: 10.1001/jamacardio.2020.0013 Current Interpretive Data was last revised on 2024. Testing performed by: [address] [address] Non-HDL Cholesterol 100 mg/dL JENNY Comment: Interpretive Data Ages < or = 19 years Acceptable: <120 mg/dL Borderline high: 120-144 mg/dL High: >145 mg/dL Ages > or = 20 years When triglycerides are >200 mg/dL, Non-HDL cholesterol is a secondary target of therapy with treatment goals that are 30 mg/dL greater than the LDL cholesterol target. Literature References: 1. Expert Panel on Integrated Guidelines for Cardiovascular Health and Risk Reduction in Children and Adolescents. Pediatrics 2011;128:S213 2. NCEP Expert Panel. Circulation 2004;110:227 Current Interpretive Data was last revised on 2018. Testing performed by: [address] [address] Chol/HDL ratio 2 JENNY Comment:Testing performed by : [address] [address] Blood 05/17/2025 7:55 AM CDT 05/17/2025 8:09 AM CDT us Catrachita PRATHER LAB BLOOD ORDERABLES Fin al Result [facility] [address] [facility] Department [place] [address] * Comprehensive metabolic panel (05/17/2025 7:55 AM CDT) Sodium 139 135 - 145 mmol/L Comment:Testing performed by : [address] [address] Potassium, pl 4.5 3.3 - 4.9 mmol/L JENNY Comment:Testing performed by : [address] [address] Chloride 105 97 - 110 mmol/L JENNY Comment:Testing performed by : [address] [address] CO2 23 22 - 32 mmol/L JENNY Comment:Testing performed by : [address] [address] Anion gap 11 2 - 15 mmol/L JENNY Comment:Testing performed by : [address] [address] BUN 12 6 - 25 mg/dL JENNY Comment:Testing performed by : [address] [address] Creatinine 0.88 0.60 - 1.10 mg/dL JENNY Comment:Testing performed by : [address] [address] Glucose 101 70 - 199 mg/dL JENNY Comment: Interpretive Data Fasting glucose >/= 126 mg/dl is diagnostic for diabetes. Fasting is defined as no caloric intake for at least 8 hours. Fasting glucose between 100 mg/dl to 125 mg/dl is diagnostic of prediabetes. In a patient with classic symptoms of hyperglycemia or hyperglycemic crisis, a random glucose >/= 200 mg/dl is diagnostic for diabetes. In the absence of unequivocal hyperglycemia, results should be confirmed by repeat testing. The classification and Diagnosis of Diabetes Diabetes Care 2021; 46: S19-S40. Current interpretive data was last revised 2022. Testing performed by: [address] [address] Calcium 9.5 8.5 - 10.3 mg/dL JENNY Comment:Testing performed by : [address] [address] Bilirubin, total 0.7 0.1 - 1.2 mg/dL JENNY Comment:Testing performed by : [address] [address] Protein, pl 6.5 6.5 - 8.5 g/dL JENNY Comment:Testing performed by : [address] [address] Albumin 4.5 3.5 - 5.0 g/dL JENNY Comment:Testing performed by : [address] [address] Alk phos 59 40 - 130 Units/L JENNY Comment:Testing performed by : [address] [address] ALT 13 7 - 45 Units/L JENNY Comment:Testing performed by : [address] [address] AST 15 10 - 45 Units/L JENNY Comment:Testing performed by : [address] [address] Blood 05/17/2025 7:55 AM CDT 05/17/2025 8:09 AM CDT us Catrachita PRATHER LAB BLOOD ORDERABLES Fin al Result JENNY [address] [facility] Department [place] [address] * HM PAP SMEAR WITH HPV (07/29/2023 1:58 PM COMPUTER ENGINEER) Historical Provider HEALTH MAINTENANCE Final Result * (ABNORMAL) SCREENING MAMMOGRAM BILATERAL W MARGARITA (06/13/2023 1:15 PM CDT) Anatomical Region Laterality Modality Breast Bilateral Mammography Addenda Addendum by Liam Sylvester MD on 06/17/2023 1:08 PM CDT Comparison was made to previous examinations dated 03/21/2022, 01/04/2019 and 09/29/2017. Please disregard previous statement about no comparisons having been made. Impressions 06/13/2023 1:40 PM CDT BI-RADS ATLAS category (overall): 0 - Incomplete: Needs Additional Imaging Evaluation New indeterminate focal asymmetries in the left breast. Further evaluation with left unilateral diagnostic mammogram and possible sonogram is recommended. No suspicious findings are identified in the right breast on mammogram. The patient has been or will be contacted. Narrative 06/13/2023 1:40 PM CDT SCREENING MAMMOGRAM BILATERAL W MARGARITA: 06/13/23 The study was acquired using full field digital technology and interpreted from soft copy. 2D digital mammographic views, as well as 3D digital tomosynthesis were performed in the CC and MLO projections. CLINICAL: Encounter for screening mammogram for malignant neoplasm of breast. No relevant medical history has been documented for this patient. History of breast cancer in Mother's Sister. No comparisons were made when reading this study. BREAST TISSUE: The breasts are heterogeneously dense, which may obscure small masses. FINDINGS: Bilateral breast implants are stable. The presence of implants limits the sensitivity of mammography. No suspicious findings are identified in the right breast on mammogram. A new focal asymmetry is noted in the central upper left breast. There is also a new focal asymmetry in the central inner left breast. Ruthann Melissa MD IMG MAMMO PROCEDURE S Edited Result - Final from Last 3 Months or Most Recently Relevant to Health Maintenance Insurance [facility] ANTH ACCESS CHOICE [facility] CMR Care Teams Hydrotel Operator Relationship Specialty Start Date End Date Catrachita Combs PA [address] [place] [address] PCP - General Family Medicine 04/16/24
--- OUTSIDE RECORDS SUMMARY | 2025-06-09 02:00 | XMS_ITS | Encounter Summary ---
Author Organization [facility] Healthcare Address [address] [place] [id number] Care Team Providers Care Brimmer Blocker Name Role Phone Catrachita Combs Primary Care Provider + Encounter Details Date Type Department Care Team (Late st Contact Info) Description 05/17/2025 Results Follow-Up [facility] Medical Group Family Medicine [address] [phone] Catrachita Combs PA [address] [place] [address] Thyroid Function [place], Lipid panel, Comprehensive metabolic panel, Additional followed-up results: 7 Social History Tobacco Use Types Packs/Day Years Used Date Smoking Tobacco: Never Alcohol Use Standard Drinks/Week Comments Yes 0 [...] on file Legal Sex Female 11:03 AM RESEARCH PROFESSIONAL Gender Identity Female 07/02/2021 10:51 AM RESEARCH PROFESSIONAL Sexual Orientation Straight 07/02/2021 10 :51 AM RESEARCH PROFESSIONAL documented as of this encounter Plan of Treatment Not on file documented as of this encounter Visit Diagnoses Not on filedocumented in this encounter Care Teams Brimmer Blocker Relationship Specialty Start Date End Date Catrachita Combs PA [facility] [address] [facility] [address] [place] [address] PCP - General Family Medicine 04/16/24 documented as of this encounter
--- NOTE | 2025-06-09 06:39 | WPDHPUPDATE1 ---
History and Physical Update Update Date/Time: 06/09/25 06:39 History and Physical has been reviewed, including an updated exam of the patient. There are NO changes in the patient's condition. Risks, benefits, and alternatives have been discussed and questions answered. Patient agrees to proceed with procedure.
[2025-06-09 08:09] LABS: Hematocrit 42.7 % (37.0-47.0); Hemoglobin 14.2 g/dL (12.0-15.0)
--- NOTE | 2025-06-09 08:17 | WPDANESEPPF ---
Anes - Initial Pre Proc Eval Procedure: Operation Date: 06/09/25 09:30 Proposed Procedures p Laparoscopic Bilateral Salpingectomy, Hysteroscopy, Dilatation and Curettage with Dora Endometrial Ablation - Fidel Guzman MD Date/Time: 06/09/25 08:17 Surgeon: Fidel Guzman MD Pre Op Diagnosis: irregular abnormal bleeding, desires sterilization Patient Data Age: 44 Gender: F Height: 1.5 m Weight: 59 kg Allergies Allergy/AdvReac Type Severity Reaction Status Date / Time levofloxacin Allergy Unknown Rash Verified 06/07/25 10:41 Home Medications ?Medication ?Instructions ?Recorded ?Confirmed ?Type ascorbic acid (vitamin C) 1,000 mg 500 mg PO BID PRN if not feeling 06/07/25 06/07/25 History tablet (C-1000) well multivitamin (Daily Multi-Vitamin 1 tablet PO DAILY 06/07/25 06/07/25 History tablet) omega 1-emw-wmg-fish oil 1,000 mg 2 cap PO DAILY 06/07/25 06/07/25 History (120 mg-180 mg) capsule (Fish Oil) hydrocodone 5 mg-acetaminophen 325 1 tablet PO Q4H PRN pain #14 tabs 06/09/25 Rx mg tablet Laboratory Tests 06/09/25 08:01 Hgb 14.2 g/dL (12.0-15.0) Hct 42.7 % (37.0-47.0) Patient hx anesthesia problems: none Family hx anesthesia problems: none Results Review: All pre-operative results and documents have been reviewed as part of the pre-operative evaluation. [facility] Surgical History Surgical History (Updated 06/09/25 @ 08:18 by Fidel Schwartz MD) History of D&C H/O breast augmentation Family History Family History Father Family history of malignant neoplasm of urinary bladder Social History Social History Smoking status: Never smoker Alcohol intake: current Drinks per week: 5 Living arrangements: with family Spiritual care concerns: No Anes - Eval Final PreProcedure Day of Procedure 06/09/25 08:17 Patient weight: normal Heart: regular rate and rhythm Lungs: clear to auscultation Airway: Mallampati scale class 1 Neurological: alert and oriented Last oral intake: >/= 8 hours ASA classification: I Emergent: no Anesthetic plan: proceed Anesthesia type and monitoring: general ETT and standard monitoring Results Review: All pre-operative results and documents have been reviewed as part of the pre-operative evaluation. Informed Consent: The patient's anesthetic plan and its attendant risks and benefits were discussed with the patient/family/POA. Questions were solicited and answers provided to the satisfaction of the patient/family/POA.
[2025-06-09] MEDS: ACETAMINOPHEN 500 MG TABLET 1000 MG PO (08:30)
[2025-06-09] MEDS: KETOROLAC 15 MG/ML VIAL (*BKC) IV PUSH (08:30)
[2025-06-09] MEDS: LACTATED RINGERS 1,000 ML 30 ML IV CONT ×3 (08:30→12:52)
[2025-06-09 08:58] LABS: BEDSIDEPREGUCG Negative (Negative)
[2025-06-09] MEDS: SCOPOLAMINE 1 MG PATCH 1 PATCH TRANSDERM (08:58)
--- NOTE | 2025-06-09 10:23 | S_PTH ---
PATIENT: Joan Philippe LOC: [facility] U#:[id number] AGE/SX: 44/F ROOM: RE06/09/[address]: Fidel Guzman MD : 1980 BED: DIS: 06/09/2025 SPEC #: [id number] RECD: 06/09/25 11:10 STATUS: ALEC RE #: [id number] JAVON: 06/09/25 10:[address]: Fidel Roa DEPT: [facility] Surgical RECD BY: Florence Escalante ENTERED: 06/09/25 11:11 SP TYPE: Surgical OTHR DR: Ruthann MelissaMD Tissues: A - Fallopian Tube Bilateral B - Endometrial Curettings Procedures: Gross and Microscopic Level 2 Hematoxylin and Eosin Stain Gross and Microscopic Level 4
--- NOTE | 2025-06-09 10:31 | W.PM.PROC2 ---
Procedure Note - Detailed Date of Procedure 06/09/25 Pre-op Diagnosis irregular abnormal bleeding, desires sterilization Post-op Diagnosis Same Procedure Performed Laparoscopic bilateral salpingectomy hysteroscopy/dilatation curettage/Dora ablation Surgeon Fidel Guzman MD Anesthesia General Indications 44-year-old female who desires permanent sterilization with excessive heavy bleeding Findings Uterus was retroverted 8cm deep. Normal-appearing ovaries and tubes. Description of Procedure Patient was prepped draped in the normal sterile fashion placed in dorsal lithotomy position. Under excellent general trach anesthesia weighted speculum placed in posterior fornix vagina. Anterior lip of the cervix grasped with single-tooth tenaculum. Uterus sounded 8cm noted be markedly retroverted serial dilatation with fragmented dilators performed followed by passage of the 5mm visualizing hysteroscope normal-appearing endometrium was present the uterus was then scraped over the entire 360?. The Dora instrument was placed burned for a total of 120seconds and removed. The gloves were changed. An infraumbilical incision made the Veress needle passed in the abdomen. Abdomen filled with CO2 gas [id number]. The 5mm trocar advanced with the Optiview in no injury seen. Patient placed in Trendelenburg and a suprapubic incision made. The 5mm trocar advanced under direct visualization assuring no injury. Left lower quadrant incision made the 5mm trocar advanced under direct visualization assuring no injury. The right fallopian tube was grasped and was sharply dissected away from the ovarian complex using the LigaSure to the base of the uterus this was then clamped burned and was passed off through the left lower quadrant incision. In similar fashion on the left, the fallopian tube was grasped and using LigaSure was serially clamped burned cut with the LigaSure from the ovarian complex and excised at the uterine origin. This was passed through the left lower quadrant hemostasis was assured. The gas removed from the abdomen. The trocars removed the incisions closed with 4 Monocryl and glue. QBL was 5cc. All sponge, needle, instrument counts were correct. There were no immediate complications Estimated Blood Loss 5 Drains No Packing No Pathology Yes Complications No immediate complications Condition Stable Disposition PACU
[2025-06-09] MEDS: fentaNYL CITRATE INJ (*CRX) 100 MCG/2 ML VIAL 25 MCG IV PUSH ×5 (11:08→12:41)
[2025-06-09] MEDS: MEPERIDINE HCL INJ (*CRX) 50 MG/ML AMPUL 25 MG IV PUSH (11:21)
[2025-06-09] MEDS: MIDAZOLAM HCL (*CRX) 2 MG/2 ML VIAL IV PUSH (11:21)
--- NOTE | 2025-06-09 11:26 | SUR.PHASEI ---
1118 - pt shivering, moving head side to side. arouses to verbal stimuli, pt oriented times 3. dr. augustin updated on vital signs and shivering. orders received.
[2025-06-09] MEDS: oxyCODONE HCL (*CRX) 5 MG TAB IR PO (13:24)
== END 2025-06-09 14:13 | disposition home or self-care (01) ==
PROVIDERS: PCP Family Medicine; Visit Provider Obstetrics & Gynecology
PROC: 0UDB8ZZ Extraction of Endometrium, Via Natural or Artificial Opening Endoscopic (ICD-10-PCS; CPT 58558; principal; 2025-06-09 09:30)
DX: Z30.2 Encounter for sterilization (principal); N85.8 Other specified noninflammatory disorders of uterus; Z79.891 Long term (current) use of opiate analgesic; Z79.1 Long term (current) use of non-steroidal anti-inflammatories (NSAID); Z98.890 Other specified postprocedural states; Z80.52 Family history of malignant neoplasm of bladder
CPT/HCPCS: 58558; 58661; 36415; 85014; 85018; 88302; 88305; A9270; J1100; J1885; J2003; J2175; J2250; J2405; J2704; J3010; J7120